=== PATIENT | male | born 1955 | race Two or more races ===

== ENCOUNTER 2018-12-05 18:19 | Outpatient (CLI) | payer OTHER | END 2018-12-05 18:37 | disposition home or self-care (01) | LOC: LAB 18:19 | DX: R97.20 Elevated prostate specific antigen [PSA] (principal) ==

== ENCOUNTER 2019-07-08 10:39 | Outpatient (CLI) | payer OTHER | END 2019-07-08 10:51 | disposition home or self-care (01) | LOC: LAB 10:39 | DX: R97.20 Elevated prostate specific antigen [PSA] (principal) ==

== ENCOUNTER 2019-08-30 07:11 | Outpatient (CLI) | payer OTHER | END 2019-08-30 07:14 | disposition home or self-care (01) | LOC: SONOGRAMA 07:11 | DX: C61 Malignant neoplasm of prostate (principal); R97.20 Elevated prostate specific antigen [PSA] ==